=== PATIENT | male | born 1985 | race Hispanic/Latino ===

== ENCOUNTER 2021-10-01 12:55 | Inpatient (IN) | payer OTHER ==
[~2021-10-01] VITALS: Ht 167.6 cm; Wt 101.2 kg
[2021-10-01] MEDS ORDERED: 0.9%NACL 1000ML 1,000 ML IV ONE ×2 (15:00→18:30)
[2021-10-01] MEDS ORDERED: MORPHINE 2 MG SYG IVP ONE ×2 (15:00→18:30)
[2021-10-01] MEDS ORDERED: ONDANSETRON 4MG INJ IVP ONE (15:00)
[2021-10-01 15:12] LABS: BASOPHILS % (AUTO) 1.3 % (0.0-5.0); EOSINOPHILS % (AUTO) 0.2 % (0.0-8.0); HEMATOCRIT 29.9 % (42-54); LYMPHOCYTES % (AUTO) 19.8 % (21.0-51.0); MEAN CORPUSCULAR HEMOGLOBIN 31.4 pg (27.0-33.0); MEAN CORPUSCULAR HGB CONC 33.1 g/dL (32.0-36.0); MEAN CORPUSCULAR VOLUME 94.9 fL (79-99); MONOCYTES % (AUTO) 11.6 % (3.0-13.0); NEUTROPHILS % (AUTO) 66.9 % (40.0-77.0); PLATELET COUNT (AUTO) 112 K/uL (130-400); RED BLOOD CELL COUNT(AUTO) 3.15 MIL/uL (4.50-6.20); RED CELL DISTRIBUTION WIDTH 16.2 % (11.0-15.5); WHITE BLOOD COUNT (AUTO) 4.8 K/uL (4.8-10.8)
[2021-10-01 15:26] LABS: CREATININE 0.8 mg/dL (0.5-1.5); POTASSIUM 4.2 mmol/L (3.5-5.1)
[2021-10-01 15:31] LABS: ALBUMIN 2.6 g/dL (3.5-5.0); TOTAL PROTEIN, SERUM 7.5 g/dL (6.0-8.3)
[2021-10-01 17:21] LABS: APPEARANCE,URINE Clear (CLEAR); BILIRUBIN,URINE Negative (NEGATIVE); COLOR,URINE Dark Yellow (YELLOW); GLUCOSE, URINE (UA) Negative (NEGATIVE); KETONES,URINE Negative (NEGATIVE); LEUKOCYTE ESTERASE ,URINE Negative (NEGATIVE); NITRATE,URINE Negative (NEGATIVE); OCCULT BLOOD,URINE Negative (NEGATIVE); PH,URINE 7.5 (5.0-8.0); PROTEIN,URINE Negative (NEGATIVE)
[2021-10-01] MEDS: ZOSYN 3.375GM +NS 50ML IV SCH (18:09)
[2021-10-01] MEDS ORDERED: PROMETHAZINE HCL 25 MG/ML 1ML AMPULE IM ONE (18:30)
[2021-10-01 20:37] LABS: AMPHET/METH SCREEN,URINE NEGATIVE (NEGATIVE); BARBITURATE SCREEN, URINE NEGATIVE (NEGATIVE); BENZODIAZEPINES SCREEN,URINE NEGATIVE (NEGATIVE); CANNABINOID SCREEN,URINE NEGATIVE (NEGATIVE); COCAINE SCREEN,URINE NEGATIVE (NEGATIVE); OPIATE SCREEN,URINE NEGATIVE (NEGATIVE); PHENCYCLIDINE SCREEN,URINE NEGATIVE (NEGATIVE)
[2021-10-01] MEDS: LACTATED RINGERS 1000ML 1,000 ML IV SCH (20:59)
[2021-10-01] MEDS: FAMOTIDINE 20MG VIAL IV SCH (20:59)
[2021-10-01] MEDS ORDERED: ACETAMINOPHEN 650 MG/20.3 ML UDCUP PEG PRN (22:00)
[2021-10-02] VITALS: BP 125/78
[2021-10-02] MEDS: MORPHINE 4 MG SYG IV PRN ×3 (00:30→16:06)
[2021-10-02] MEDS: ONDANSETRON 4MG INJ IVP PRN ×3 (00:49→16:06)
[2021-10-02] MEDS: ZOSYN 3.375GM +NS 50ML IV SCH ×3 (02:25→20:25)
[2021-10-02 04:00] VITALS: BP 141/86
[2021-10-02] MEDS ORDERED: ACETAMINOPHEN 650 MG/20.3 ML UDCUP PO PRN (04:00)
[2021-10-02] MEDS: LACTATED RINGERS 1000ML 1,000 ML IV SCH ×2 (05:30→15:30)
[2021-10-02 06:12] LABS: EOSINOPHILS % (AUTO) 3.2 % (0.0-8.0); HEMATOCRIT 26.2 % (42-54); LYMPHOCYTES % (AUTO) 38.5 % (21.0-51.0); MEAN CORPUSCULAR HEMOGLOBIN 31.9 pg (27.0-33.0); MEAN CORPUSCULAR HGB CONC 33.6 g/dL (32.0-36.0); MEAN CORPUSCULAR VOLUME 94.9 fL (79-99); MONOCYTES % (AUTO) 13.2 % (3.0-13.0); NEUTROPHILS % (AUTO) 43.9 % (40.0-77.0); PLATELET COUNT (AUTO) 94 K/uL (130-400); RED BLOOD CELL COUNT(AUTO) 2.76 MIL/uL (4.50-6.20); RED CELL DISTRIBUTION WIDTH 15.9 % (11.0-15.5); WHITE BLOOD COUNT (AUTO) 4.1 K/uL (4.8-10.8)
[2021-10-02 06:27] LABS: ALBUMIN 2.1 g/dL (3.5-5.0); BILIRUBIN,TOTAL 5.9 mg/dL (0.2-1.0); CREATININE 0.8 mg/dL (0.5-1.5); POTASSIUM 4.1 mmol/L (3.5-5.1); TOTAL PROTEIN, SERUM 6.2 g/dL (6.0-8.3)
[2021-10-02 06:33] LABS: INR 1.28 (0.85-1.15); PROTHROMBIN TIME 13.6 SEC (9.6-11.6)
[2021-10-02 06:34] LABS: PARTIAL THROMBOPLASTIN TIME 29.5 SEC (26.3-35.5)
[2021-10-02 07:43] VITALS: BP 131/79
[2021-10-02] MEDS: FAMOTIDINE 20MG VIAL IV SCH ×2 (08:19→20:24)
[2021-10-02 12:08] VITALS: BP 138/73
[2021-10-02 16:00] VITALS: BP 140/81
[2021-10-02 19:00] VITALS: BP 143/82
[2021-10-02] MEDS: MORPHINE 2 MG SYG IV PRN (20:25)
[2021-10-03] VITALS (8 sets, daily range): BP systolic 104–130; BP diastolic 55–100
[2021-10-03] MEDS: LACTATED RINGERS 1000ML 1,000 ML IV SCH ×3 (01:30→22:13)
[2021-10-03] MEDS: ZOSYN 3.375GM +NS 50ML IV SCH ×3 (03:53→20:39)
[2021-10-03] MEDS: MORPHINE 2 MG SYG IV PRN (03:54)
[2021-10-03 05:12] LABS: BASOPHILS % (AUTO) 0.9 % (0.0-5.0); EOSINOPHILS % (AUTO) 3.6 % (0.0-8.0); HEMATOCRIT 26.3 % (42-54); LYMPHOCYTES % (AUTO) 29.1 % (21.0-51.0); MEAN CORPUSCULAR HEMOGLOBIN 31.3 pg (27.0-33.0); MEAN CORPUSCULAR HGB CONC 32.3 g/dL (32.0-36.0); MEAN CORPUSCULAR VOLUME 96.7 fL (79-99); MONOCYTES % (AUTO) 14.5 % (3.0-13.0); NEUTROPHILS % (AUTO) 51.7 % (40.0-77.0); PLATELET COUNT (AUTO) 78 K/uL (130-400); RED BLOOD CELL COUNT(AUTO) 2.72 MIL/uL (4.50-6.20); RED CELL DISTRIBUTION WIDTH 15.3 % (11.0-15.5); WHITE BLOOD COUNT (AUTO) 4.2 K/uL (4.8-10.8)
[2021-10-03 05:22] LABS: CREATININE 0.9 mg/dL (0.5-1.5); POTASSIUM 4.3 mmol/L (3.5-5.1)
[2021-10-03] MEDS: MORPHINE 4 MG SYG IV PRN ×2 (08:37→16:43)
[2021-10-03] MEDS: FAMOTIDINE 20MG VIAL IV SCH ×2 (08:37→20:40)
[2021-10-03] MEDS ORDERED: SPIR25TA6 PO (17:27)
[2021-10-03] MEDS ORDERED: DILT30TA3 PO (17:27)
[2021-10-03] MEDS ORDERED: FOLI0.8T3 PO (17:27)
[2021-10-03] MEDS ORDERED: CHLO25CA5 PO (17:27)
[2021-10-03] MEDS ORDERED: FURO40TA5 PO (17:27)
[2021-10-03] MEDS ORDERED: LACT10SO9 PO (17:27)
[2021-10-03] MEDS ORDERED: DIPH50CA37 PO (17:27)
[2021-10-03] MEDS ORDERED: ATEN25TA PO (17:27)
[2021-10-03] MEDS ORDERED: FURO40SO4 PO (17:27)
[2021-10-03] MEDS ORDERED: POTA-10 PO (17:27)
[2021-10-03] MEDS ORDERED: FERR-72 PO (17:27)
[2021-10-03] MEDS ORDERED: LACTULOSE 20 GM/30 ML UDCUP PO PRN (18:00)
[2021-10-03] MEDS: FERROUS SULFATE 325 MG TABLET.DR PO SCH (20:40)
[2021-10-03] MEDS: ATENOLOL 25 MG TABLET PO SCH (20:40)
[2021-10-04] MEDS: MORPHINE 2 MG SYG IV PRN ×2 (00:07→23:46)
[2021-10-04] MEDS: ZOSYN 3.375GM +NS 50ML IV SCH ×3 (03:37→21:01)
[2021-10-04 04:04] VITALS: BP 99/58
[2021-10-04 07:20] VITALS: BP 111/61
[2021-10-04] MEDS: FAMOTIDINE 20MG VIAL IV SCH ×2 (08:26→21:01)
[2021-10-04] MEDS: LACTATED RINGERS 1000ML 1,000 ML IV SCH ×2 (08:26→17:57)
[2021-10-04] MEDS: POTASSIUM CHLORIDE 10MEQ SR TAB PO SCH (09:00)
[2021-10-04] MEDS: FOLIC ACID 1 MG TABLET PO SCH (09:00)
[2021-10-04] MEDS: FERROUS SULFATE 325 MG TABLET.DR PO SCH ×2 (09:00→21:01)
[2021-10-04] MEDS ORDERED: FUROSEMIDE 40 MG TABLET PO SCH (09:00)
[2021-10-04] MEDS: ATENOLOL 25 MG TABLET PO SCH ×2 (09:00→21:01)
[2021-10-04 11:20] VITALS: BP 105/58
[2021-10-04 15:20] VITALS: BP 107/64
[2021-10-04] MEDS: MORPHINE 4 MG SYG IV PRN (16:27)
[2021-10-04] MEDS ORDERED: PHYTONADIONE 10 MG in 0.9%NACL 50ML 50 ML IVPB ONE (18:00)
[2021-10-04 19:57] VITALS: BP 108/70
[2021-10-05] VITALS (23 sets, daily range): BP systolic 95–132; BP diastolic 40–74
[2021-10-05 04:51] LABS: EOSINOPHILS % (AUTO) 4.2 % (0.0-8.0); LYMPHOCYTES % (AUTO) 31.7 % (21.0-51.0); MEAN CORPUSCULAR HEMOGLOBIN 31.9 pg (27.0-33.0); MEAN CORPUSCULAR HGB CONC 32.6 g/dL (32.0-36.0); MEAN CORPUSCULAR VOLUME 97.8 fL (79-99); MONOCYTES % (AUTO) 12.2 % (3.0-13.0); NEUTROPHILS % (AUTO) 50.7 % (40.0-77.0); PLATELET COUNT (AUTO) 107 K/uL (130-400); RED BLOOD CELL COUNT(AUTO) 2.76 MIL/uL (4.50-6.20); RED CELL DISTRIBUTION WIDTH 15.9 % (11.0-15.5)
[2021-10-05] MEDS: ZOSYN 3.375GM +NS 50ML IV SCH ×3 (04:59→21:48)
[2021-10-05 05:04] LABS: ALBUMIN 2.2 g/dL (3.5-5.0); PARTIAL THROMBOPLASTIN TIME 29.3 SEC (26.3-35.5); POTASSIUM 3.9 mmol/L (3.5-5.1); TOTAL PROTEIN, SERUM 6.1 g/dL (6.0-8.3)
[2021-10-05 05:50] LABS: INR 1.39 (0.85-1.15); PROTHROMBIN TIME 14.1 SEC (9.6-11.6)
[2021-10-05] MEDS: ATENOLOL 25 MG TABLET PO SCH ×2 (09:00→21:49)
[2021-10-05] MEDS: FOLIC ACID 1 MG TABLET PO SCH (09:00)
[2021-10-05] MEDS: FAMOTIDINE 20MG VIAL IV SCH ×2 (09:00→21:48)
[2021-10-05] MEDS: POTASSIUM CHLORIDE 10MEQ SR TAB PO SCH (09:00)
[2021-10-05] MEDS ORDERED: PROPOFOL 10 MG/ML 20ML VIAL IV ONE (10:19)
[2021-10-05] MEDS ORDERED: PHARMACY COMMUNICATION MISC PRN (13:00)
[2021-10-05] MEDS ORDERED: LORAZEPAM 2 MG/ML 1 ML VIAL IVP PRN ×2 (13:00)
[2021-10-05] MEDS: LACTATED RINGERS 1000ML 1,000 ML IV SCH ×2 (13:30→23:30)
[2021-10-05] MEDS ORDERED: COMPOUND IV REFRIGERATED 1 EACH IVSOLN MISC PRN (13:30)
[2021-10-05] MEDS: MORPHINE 2 MG SYG IV PRN (16:49)
[2021-10-05] MEDS: MORPHINE 4 MG SYG IV PRN (22:00)
[2021-10-06] MEDS: [UNRECOGNIZED DRUG - MIXTURE] IV SCH ×2 (02:00→13:00)
[2021-10-06 04:01] VITALS: BP 113/67
[2021-10-06 04:41] LABS: BASOPHILS % (AUTO) 1.3 % (0.0-5.0); HEMATOCRIT 30.4 % (42-54); LYMPHOCYTES % (AUTO) 28.8 % (21.0-51.0); MEAN CORPUSCULAR HEMOGLOBIN 31.9 pg (27.0-33.0); MEAN CORPUSCULAR HGB CONC 32.6 g/dL (32.0-36.0); MEAN CORPUSCULAR VOLUME 98.1 fL (79-99); MONOCYTES % (AUTO) 10.8 % (3.0-13.0); PLATELET COUNT (AUTO) 145 K/uL (130-400); RED CELL DISTRIBUTION WIDTH 16.2 % (11.0-15.5); WHITE BLOOD COUNT (AUTO) 6.7 K/uL (4.8-10.8)
[2021-10-06 04:53] LABS: ALBUMIN 2.5 g/dL (3.5-5.0); POTASSIUM 3.9 mmol/L (3.5-5.1)
[2021-10-06] MEDS: ZOSYN 3.375GM +NS 50ML IV SCH ×3 (05:06→20:45)
[2021-10-06] MEDS: MORPHINE 4 MG SYG IV PRN (05:29)
[2021-10-06 07:30] VITALS: BP 87/44
[2021-10-06] MEDS: ATENOLOL 25 MG TABLET PO SCH ×2 (09:00→20:48)
[2021-10-06] MEDS: FOLIC ACID 1 MG TABLET PO SCH (09:00)
[2021-10-06] MEDS: POTASSIUM CHLORIDE 10MEQ SR TAB PO SCH (09:00)
[2021-10-06] MEDS: FAMOTIDINE 20MG VIAL IV SCH ×2 (10:15→20:44)
[2021-10-06 11:00] VITALS: BP 100/56
[2021-10-06] MEDS: LACTATED RINGERS 1000ML 1,000 ML IV SCH (14:19)
[2021-10-06 16:00] VITALS: BP 101/48
[2021-10-06] MEDS: MORPHINE 2 MG SYG IV PRN (16:58)
[2021-10-06 19:00] VITALS: BP 120/67
[2021-10-07] VITALS (21 sets, daily range): BP systolic 94–125; BP diastolic 38–73
[2021-10-07] MEDS ORDERED: MORPHINE 4 MG SYG IM PRN (01:00)
[2021-10-07] MEDS: LACTATED RINGERS 1000ML 1,000 ML IV SCH ×4 (01:25→20:11)
[2021-10-07 05:19] LABS: BASOPHILS % (AUTO) 1.3 % (0.0-5.0); EOSINOPHILS % (AUTO) 4.3 % (0.0-8.0); HEMATOCRIT 26.2 % (42-54); LYMPHOCYTES % (AUTO) 27.3 % (21.0-51.0); MEAN CORPUSCULAR HGB CONC 32.8 g/dL (32.0-36.0); MEAN CORPUSCULAR VOLUME 97.4 fL (79-99); MONOCYTES % (AUTO) 17.4 % (3.0-13.0); NEUTROPHILS % (AUTO) 49.4 % (40.0-77.0); PLATELET COUNT (AUTO) 97 K/uL (130-400); RED BLOOD CELL COUNT(AUTO) 2.69 MIL/uL (4.50-6.20); RED CELL DISTRIBUTION WIDTH 16.2 % (11.0-15.5)
[2021-10-07] MEDS: ZOSYN 3.375GM +NS 50ML IV SCH ×4 (05:24→23:11)
[2021-10-07 05:42] LABS: ALBUMIN 2.1 g/dL (3.5-5.0); BILIRUBIN,TOTAL 2.5 mg/dL (0.2-1.0); CREATININE 0.9 mg/dL (0.5-1.5); POTASSIUM 4.6 mmol/L (3.5-5.1); TOTAL PROTEIN, SERUM 5.8 g/dL (6.0-8.3)
[2021-10-07] MEDS: MORPHINE 2 MG SYG IVP PRN (07:49)
[2021-10-07] MEDS: FAMOTIDINE 20MG VIAL IV SCH ×2 (07:49→23:10)
[2021-10-07] MEDS: ATENOLOL 25 MG TABLET PO SCH ×2 (07:51→23:13)
[2021-10-07] MEDS: FOLIC ACID 1 MG TABLET PO SCH (09:00)
[2021-10-07] MEDS: POTASSIUM CHLORIDE 10MEQ SR TAB PO SCH (09:00)
[2021-10-07] MEDS ORDERED: BUPIVACAINE/PF 0.5% 30ML VIAL ONE (12:41)
[2021-10-07] MEDS ORDERED: LIDOCAINE HCL 1% 20 ML VIAL ONE (12:41)
[2021-10-07] MEDS ORDERED: PROPOFOL 10 MG/ML 20ML VIAL IV ONE (14:48)
[2021-10-07] MEDS ORDERED: FENTANYL CITRATE PF 50 MCG/1 ML 2ML VIAL ONE ×4 (14:49→20:13)
[2021-10-07] MEDS ORDERED: ROCURONIUM 10MG/1ML SYR 10 MG/ML ML ONE ×2 (14:49→18:09)
[2021-10-07] MEDS ORDERED: MIDAZOLAM HCL 1 MG/ML 2ML VIAL ONE (14:49)
[2021-10-07] MEDS ORDERED: EPHEDRINE SULFATE 50 MG/ML AMPULE ONE (16:31)
[2021-10-07] MEDS ORDERED: DEXAMETHASONE SOD PHOSPHATE 10MG/ML 1ML VIAL ONE (16:43)
[2021-10-07] MEDS ORDERED: ONDANSETRON 4MG INJ ONE (16:45)
[2021-10-07] MEDS ORDERED: MEPERIDINE-PF 25 MG/ML SYG ONE ×2 (19:53→20:32)
[2021-10-07] MEDS ORDERED: GLYCOPYRROLATE 1 MG/5 ML SYRINGE ONE (19:54)
[2021-10-07] MEDS ORDERED: NEOSTIGMINE 5MG/5ML SYR IV ONE (19:54)
[2021-10-08] VITALS (9 sets, daily range): BP systolic 85–123; BP diastolic 45–76
[2021-10-08] MEDS: MORPHINE 2 MG SYG IVP PRN (02:43)
[2021-10-08] MEDS: ZOSYN 3.375GM +NS 50ML IV SCH ×3 (05:33→21:17)
[2021-10-08 05:51] LABS: HEMATOCRIT 29.5 % (42-54); LYMPHOCYTES % (AUTO) 5.9 % (21.0-51.0); MEAN CORPUSCULAR HEMOGLOBIN 31.8 pg (27.0-33.0); MEAN CORPUSCULAR HGB CONC 31.9 g/dL (32.0-36.0); MEAN CORPUSCULAR VOLUME 99.7 fL (79-99); MONOCYTES % (AUTO) 7.3 % (3.0-13.0); NEUTROPHILS % (AUTO) 86.4 % (40.0-77.0); PLATELET COUNT (AUTO) 83 K/uL (130-400); RED BLOOD CELL COUNT(AUTO) 2.96 MIL/uL (4.50-6.20); RED CELL DISTRIBUTION WIDTH 15.8 % (11.0-15.5); WHITE BLOOD COUNT (AUTO) 5.1 K/uL (4.8-10.8)
[2021-10-08 06:07] LABS: ALBUMIN 2.3 g/dL (3.5-5.0); BILIRUBIN,TOTAL 3.9 mg/dL (0.2-1.0); CREATININE 1.1 mg/dL (0.5-1.5); TOTAL PROTEIN, SERUM 6.4 g/dL (6.0-8.3)
[2021-10-08] MEDS: FOLIC ACID 1 MG TABLET PO SCH (08:32)
[2021-10-08] MEDS: POTASSIUM CHLORIDE 10MEQ SR TAB PO SCH (08:33)
[2021-10-08] MEDS: FAMOTIDINE 20MG VIAL IV SCH ×2 (08:34→21:18)
[2021-10-08] MEDS: ATENOLOL 25 MG TABLET PO SCH ×2 (08:53→21:00)
[2021-10-08] MEDS ORDERED: MORPHINE 4 MG SYG IVP PRN (09:00)
[2021-10-08] MEDS: [UNRECOGNIZED DRUG - MIXTURE] IV SCH (13:00)
[2021-10-08] MEDS: TRAMADOL HCL 50 MG TABLET PO PRN (18:48)
[2021-10-08] MEDS ORDERED: 0.9%NACL 1000ML 1,000 ML IV ONE (22:26)
[2021-10-08] MEDS ORDERED: 0.9% NACL 500ML IV.SOLN 500 ML IV ONE ×2 (22:30)
[2021-10-09 03:38] VITALS: BP 116/59
[2021-10-09] MEDS: ZOSYN 3.375GM +NS 50ML IV SCH (05:00)
[2021-10-09 06:23] LABS: BASOPHILS % (AUTO) 0.1 % (0.0-5.0); HEMATOCRIT 26.9 % (42-54); LYMPHOCYTES % (AUTO) 6.6 % (21.0-51.0); MEAN CORPUSCULAR HEMOGLOBIN 31.8 pg (27.0-33.0); MEAN CORPUSCULAR HGB CONC 32.3 g/dL (32.0-36.0); MEAN CORPUSCULAR VOLUME 98.2 fL (79-99); MONOCYTES % (AUTO) 9.8 % (3.0-13.0); NEUTROPHILS % (AUTO) 82.8 % (40.0-77.0); PLATELET COUNT (AUTO) 94 K/uL (130-400); RED BLOOD CELL COUNT(AUTO) 2.74 MIL/uL (4.50-6.20); RED CELL DISTRIBUTION WIDTH 15.9 % (11.0-15.5); WHITE BLOOD COUNT (AUTO) 7.5 K/uL (4.8-10.8)
[2021-10-09 06:33] LABS: INR 1.53 (0.85-1.15)
[2021-10-09 06:39] LABS: ALBUMIN 2.2 g/dL (3.5-5.0); BILIRUBIN,TOTAL 2.4 mg/dL (0.2-1.0); CREATININE 0.9 mg/dL (0.5-1.5); POTASSIUM 4.3 mmol/L (3.5-5.1); TOTAL PROTEIN, SERUM 6.2 g/dL (6.0-8.3)
[2021-10-09] MEDS: FOLIC ACID 1 MG TABLET PO SCH (07:52)
[2021-10-09] MEDS: POTASSIUM CHLORIDE 10MEQ SR TAB PO SCH (07:53)
[2021-10-09] MEDS: FAMOTIDINE 20MG VIAL IV SCH (07:54)
[2021-10-09 08:00] VITALS: BP 97/53
[2021-10-09] MEDS: TRAMADOL HCL 50 MG TABLET PO PRN (09:15)
[2021-10-09] MEDS ORDERED: POLYETHYLENE GLYCOL 3350 17 GM POWD.PACK PO SCH (10:00)
[2021-10-09 12:00] VITALS: BP 118/64
[2021-10-09] MEDS ORDERED: METR-172 PO (12:56)
[2021-10-09] MEDS ORDERED: CEFU500T67 PO (12:56)
[2021-10-09] MEDS ORDERED: TRAM50TA4 PO (12:56)
== END 2021-10-09 14:35 | disposition home or self-care (01) | DRG 418 ==
LOC: EDH 12:55 → EDHIP 12:56 → 3CH 23:29
PROVIDERS: ADMIT Hospitalist; ATTEND Hospitalist
PROC: 0DJ08ZZ Inspection of Upper Intestinal Tract, Via Natural or Artificial Opening Endoscopic (ICD-10-PCS; principal; 2021-10-05)
PROC: 0FT44ZZ Resection of Gallbladder, Percutaneous Endoscopic Approach (ICD-10-PCS; 2021-10-07)
DX: K81.0 Acute cholecystitis (principal); J90 Pleural effusion, not elsewhere classified; D62 Acute posthemorrhagic anemia; K76.6 Portal hypertension; I10 Essential (primary) hypertension; E11.9 Type 2 diabetes mellitus without complications; F41.1 Generalized anxiety disorder; F60.7 Dependent personality disorder; Z20.822 Contact with and (suspected) exposure to COVID-19; E78.5 Hyperlipidemia, unspecified; K66.0 Peritoneal adhesions (postprocedural) (postinfection); K74.60 Unspecified cirrhosis of liver; E78.00 Pure hypercholesterolemia, unspecified; Z87.891 Personal history of nicotine dependence; Z87.19 Personal history of other diseases of the digestive system; Z85.47 Personal history of malignant neoplasm of testis; Z92.21 Personal history of antineoplastic chemotherapy; I25.2 Old myocardial infarction; Z83.3 Family history of diabetes mellitus; Z84.1 Family history of disorders of kidney and ureter; Z80.0 Family history of malignant neoplasm of digestive organs; Z84.89 Family history of other specified conditions; Z83.2 Family history of diseases of the blood and blood-forming organs and certain disorders involving the immune mechanism; Z82.49 Family history of ischemic heart disease and other diseases of the circulatory system
CPT/HCPCS: 36415; 43235; 71045; 74176; 74181; 76705; 78226; 80048; 80053; 80305; 81003; 82140; 83605; 83690; 83735; 84484; 85025; 85610; 85730; 86140; 86850; 86900; 86901; 87040; 87635; A4606; A9537; G0378; J1100; J2175; J2250; J2270; J2405; J2543; J2550; J2704; J2710; J3010; J3411; J3430; J3490; J7030; J7120